=== PATIENT | male | born 1940 | race Caucasian/White ===

== ENCOUNTER → 2016-12-27 | Outpatient (CLI) | payer MEDICARE, OTHER ==
[2016-12-27 12:19] LABS: ABSOLUTE EOSINOPHILS # (AUTO) 0.1 10^3/uL (0.0-0.6); ABSOLUTE LYMPHOCYTES (AUTO) 0.9 10^3/uL (0.5-4.7); ABSOLUTE MONOCYTES (AUTO) 0.7 10^3/uL (0.1-1.4); BASOPHILS % (AUTO) 0.5 % (0-2); HEMATOCRIT 32.2 % (37.9-51.0); HEMOGLOBIN 10.9 g/dL (13.5-17.0); HGB HCT DIFFERENCE 0.5; LYMPHOCYTES % (AUTO) 19.5 % (13-45); MEAN CORPUSCULAR HEMOGLOBIN 33.4 pg (27.0-33.4); MEAN CORPUSCULAR HGB CONC 33.9 g/dL (32.0-36.0); MEAN CORPUSCULAR VOLUME 99 fl (80-97); MONOCYTES % (AUTO) 14.3 % (3-13); RED BLOOD COUNT 3.26 10^6/uL (4.35-5.55); RED CELL DISTRIBUTION WIDTH 15.2 % (11.5-14.0); SEGMENTED NEUTROPHILS % (AUTO) 63.7 % (42-78); WHITE BLOOD COUNT 4.7 10^3/uL (4.0-10.5)
[2016-12-27 12:54] LABS: ANION GAP 12 (5-19); BLOOD UREA NITROGEN 29 mg/dL (7-20); CALCIUM 9.5 mg/dL (8.4-10.2); CARBON DIOXIDE 23 mmol/L (22-30); CHLORIDE 104 mmol/L (98-107); GLUCOSE 86 mg/dL (75-110); POTASSIUM 5.6 mmol/L (3.6-5.0); SODIUM 138.5 mmol/L (137-145)
[2016-12-27 14:20] LABS: PROTHROMBIN TIME 12.1 SEC (11.4-15.4)
== END ==
LOC: OD 11:21
PROVIDERS: ATTEND Internal Medicine Critical Care Medicine
DX: R04.2 Hemoptysis (principal); R05 Cough; K21.9 Gastro-esophageal reflux disease without esophagitis; J43.9 Emphysema, unspecified; R06.09 Other forms of dyspnea; R91.1 Solitary pulmonary nodule; J39.8 Other specified diseases of upper respiratory tract; J45.40 Moderate persistent asthma, uncomplicated
CPT/HCPCS: 36415; 80048; 85025; 85610; 85730

== ENCOUNTER 2016-12-28 09:56 | Day surgery (SDC) | payer MEDICARE, OTHER ==
[2016-12-28] MEDS ORDERED: LIDOCAINE 2% JELLY 30 ML TUBE ONE (11:52)
[2016-12-28] MEDS ORDERED: LIDOCAINE 2% INJ (20 MG/ML) 20 ML MDV ONE (11:52)
[2016-12-28] MEDS ORDERED: NALOXONE HCL INJ/PF 0.4 MG/1 ML SDV ONE (11:53)
[2016-12-28] MEDS ORDERED: EPINEPHRINE INJ/PF 1 MG/1 ML AMPULE ONE (11:53)
[2016-12-28] MEDS ORDERED: FLUMAZENIL INJ 0.5 MG/5 ML VIAL ONE (11:54)
[2016-12-28] MEDS ORDERED: EPINEPHRINE INJ 1 MG/10 ML DISP.SYRIN ONE (11:54)
[2016-12-28] MEDS ORDERED: FENTANYL CITRATE INJ/PF 100 MCG/2 ML AMPUL ONE (11:54)
[2016-12-28] MEDS: MIDAZOLAM 2 MG/2 ML INJ ONE ×9 (13:00→13:10)
[2016-12-28 14:39] VITALS: BP 137/85
--- NOTE | 2016-12-28 16:58 | OPERATIVE REPORT E ---
Operative Report NAME: ROYAL BRAYAN : 1940 AGE: 76Y DATE OF SURGERY: 12/28/2016 ROOM: PREOPERATIVE DIAGNOSIS: Recurrent hemoptysis and pulmonary nodule. POSTOPERATIVE DIAGNOSES: 1. Recurrent hemoptysis and pulmonary nodule. 2. No endobronchial lesions noted. OPERATION: Flexible bronchoscopy with bronchial washing. SURGEON: ANNITA PEREZ M.D. ESTIMATED BLOOD LOSS: None. ANESTHESIA: Sedation: Conscious sedation using IV Versed and IV fentanyl. Topical Anesthesia: 1% lidocaine solution and 2% lidocaine gel. OPERATIVE NOTE: Consent was obtained from the patient. The patient verbalized understanding of the indications, risks, and potential complications of procedure. The patient was connected to the phototypesetting equipment monitor, pulse oximeter, respiratory monitor, blood pressure monitor, and oxygen saturation monitor. 2% lidocaine solution 5 mL was given via nebulizer and 2% lidocaine solution 3 mL was given via the atomizer through the procedure pharyngeal wall. 2% lidocaine gel applied to the tonsillar pharyngeal area through cotton swabs. A flexible bronchoscope was inserted through the mouthguard. 1% lidocaine solution in aliquots of 2 mL was given as the flexible bronchoscopy was advanced through the airway. Versed was given at increments of 0.5 mg to a total dose of 4.5 mg, and fentanyl IV was given at increments of 25 mcg to a total dose of 25 mcg. There were no lesions noted on the vocal cords and oropharyngeal area. The right vocal cord appeared weak or paralyzed. There were no lesions noted in the trachea, and the elvia appeared in the midline and sharp and appeared normal. The right mainstem bronchus appeared normal. Right middle lobe bronchus, right lower lobe bronchus, and right upper lobe bronchi appeared normal. The left mainstem bronchus appeared normal, the left lingular segment bronchi and the left upper lobe bronchi and the left lower lobe bronchi appeared normal. No endobronchial lesions noted. Bronchial washing was performed on both side, and the bronchial washing was sent for cytology and microbiology culture, AFB microbiology, fungal culture and bacterial culture. The patient tolerated the procedure very well. There were no immediate postoperative complications noted. The patient will be sent home. Pulmonary Care followup in 1 week following the bronchoscopy. DICTATING PHYSICIAN: ANNITA PEREZ MD,ZAIN,MPH [id number] PHY#: [id number] ID: [id number] JOB#: [id number] ACCT: [id number] cc:ANNITA PEREZ M.D. > KYLE
== END 2016-12-28 14:40 | disposition home or self-care (01) ==
LOC: OROUT 09:56
PROVIDERS: ATTEND Internal Medicine Critical Care Medicine
DX: R91.1 Solitary pulmonary nodule (principal); R04.2 Hemoptysis; J43.9 Emphysema, unspecified; B96.89 Other specified bacterial agents as the cause of diseases classified elsewhere; J45.909 Unspecified asthma, uncomplicated; K21.9 Gastro-esophageal reflux disease without esophagitis; Z79.51 Long term (current) use of inhaled steroids; Z79.899 Other long term (current) drug therapy; Z85.528 Personal history of other malignant neoplasm of kidney; Z87.891 Personal history of nicotine dependence
CPT/HCPCS: 31622; 87070; 87205; 87206; 87116; 87101; 87077; 87186; 87015; 88104 ×2; J2250; J3490; J3010; J0171; J2310

== ENCOUNTER 2018-07-05 07:16 | Day surgery (SDC) | payer MEDICARE, OTHER ==
[2018-07-05] MEDS ORDERED: ONDANSETRON HCL INJ/PF 4 MG/2 ML SDV ONE ×2 (07:27→11:32)
[2018-07-05] MEDS ORDERED: DIPHENHYDRAMINE HCL 50 MG/ML VIAL ONE ×2 (07:27→11:32)
[2018-07-05] MEDS ORDERED: NALOXONE HCL INJ/PF 0.4 MG/1 ML SDV ONE ×2 (07:28→11:33)
[2018-07-05] MEDS ORDERED: FENTANYL CITRATE INJ/PF 100 MCG/2 ML AMPUL ONE ×2 (07:28→11:32)
[2018-07-05] MEDS ORDERED: FLUMAZENIL INJ 0.5 MG/5 ML VIAL ONE ×2 (07:28→11:33)
[2018-07-05] MEDS ORDERED: GLUCAGON,HUMAN RECOMB 1 MG INJ ONE ×2 (07:29→11:33)
[2018-07-05] MEDS ORDERED: EPINEPHRINE INJ 1 MG/10 ML DISP.SYRIN ONE ×2 (07:29→11:33)
[2018-07-05] MEDS ORDERED: LIDOCAINE 2% INJ (20 MG/ML) 20 ML MDV ONE ×2 (07:30→11:32)
[2018-07-05] MEDS ORDERED: LIDOCAINE 2% JELLY 30 ML TUBE ONE ×2 (07:30→11:32)
[2018-07-05] MEDS: MIDAZOLAM 2 MG/2 ML INJ ONE ×8 (12:47→13:03)
[2018-07-05 14:23] VITALS: BP 139/92
--- NOTE | 2018-07-05 14:48 | OPERATIVE REPORT E ---
Operative Report NAME: ROYAL SCHMIDT JR : 1940 AGE: 78Y DATE OF SURGERY: 07/05/2018 ROOM: HISTORY: The patient is a 78-year-old male who came in with a history of recurrent hemoptysis. The patient had hemoptysis in 2011, had a chest CT scan and bronchoscopy which were unremarkable. He had another hemoptysis about 2 weeks ago, spitting blood about 1 tbsp or more per episode. He currently denies any hemoptysis for the last 1 week. No fever or chills. No purulent sputum production. PREOPERATIVE DIAGNOSIS: Recurrent hemoptysis. POSTOPERATIVE DIAGNOSIS: Recurrent hemoptysis. No endobronchial lesions noted. PROCEDURE: Flexible bronchoscope with bronchial washing. INDICATION: Recurrent hemoptysis. SURGEON: ANNITA PEREZ M.D. ANESTHESIA: Topical using 2% lidocaine solution for a total dose of 14 mL. Sedation was conscious sedation using IV Versed and IV Fentanyl. BLOOD LOSS: Less than 1 mL. SPECIMENS COLLECTED: Bronchial washing specimen, both lungs. ADVERSE EVENTS OR COMPLICATIONS: None. OPERATIVE NOTE: Consent was obtained from the patient. The patient verbalized understanding of the indication, risks, and potential complications of the procedure. The patient was connected to the employee relations consultant, pulse oximetry, blood pressure monitor, and respiratory monitor. The patient was given 2% lidocaine solution, total dose of 5 mL, via nebulizer. The patient was given Hurricaine spray, 4 sprays on the oropharynx. 1% lidocaine gel was applied to the oropharyngeal area via cotton swab. The flexible bronchoscope was inserted through the mouth guard. Patient was given IV Versed at increments of 0.5 mg to a total dose of 4 mg and Fentanyl at increments of 25 mcg for a total dose of 50 mcg. The 1% lidocaine solution in aliquots of 1 to 4 mL was given through the bronchoscope. As the flexible bronchoscope was advanced the 1% lidocaine solution was given to the oropharynx, vocal cords, trachea, elvia, left mainstem bronchus, and right mainstem bronchus. Thick secretions were collected from both mainstem bronchi. There was no endobronchial lesion noted in the left lung or in the right lung in each bronchopulmonary segments. The left mainstem bronchus appeared to be easily friable and appeared to bruise with slight bleeding following severe coughing. The bleeding stopped spontaneously during the procedure. There was no adverse event during the procedure and after the procedure. The patient tolerated the procedure well. PLAN: Pulmonary Clinic followup in 6 weeks following discharge. I instructed the patient to cut down aspirin to 81 mg instead of the 325 mg half tablet daily to start tomorrow. DICTATING PHYSICIAN: ANNITA PEREZ MD,ZAIN,MPH [id number] PHY#: [id number] ID: [id number] JOB#: [id number] ACCT: [id number] cc:ANNITA PEREZ M.D. > MTDD
== END 2018-07-05 14:30 | disposition home or self-care (01) ==
LOC: END 07:16
PROVIDERS: ATTEND Internal Medicine Critical Care Medicine
DX: R04.2 Hemoptysis (principal); J43.9 Emphysema, unspecified; R91.8 Other nonspecific abnormal finding of lung field; J45.40 Moderate persistent asthma, uncomplicated; R91.1 Solitary pulmonary nodule; J47.9 Bronchiectasis, uncomplicated; R06.09 Other forms of dyspnea; K21.9 Gastro-esophageal reflux disease without esophagitis; Z85.528 Personal history of other malignant neoplasm of kidney; Z79.51 Long term (current) use of inhaled steroids; Z79.899 Other long term (current) drug therapy; Z79.82 Long term (current) use of aspirin; Z79.891 Long term (current) use of opiate analgesic
CPT/HCPCS: 31622; 87070; 87205; 87206; 87116; 87101; 87015; 88162; J2250; J3490; J3010; J0171; J1200; J1610; J2310; J2405

== ENCOUNTER → 2019-01-06 | Outpatient (CLI) | payer MEDICARE, OTHER ==
--- NOTE | 2019-01-07 11:04 | RADIOLOGY REPORT (SQ) ---
EXAM DESCRIPTION: PET CT SKULL/THIGH COMPLETED DATE/TIME: 01/06/2019 11:44 pm REASON FOR STUDY: (R91.1)SOLITARY PULMONARY NODULE R91.1 SOLITARY PULMONARY NODULE COMPARISON: Report only, [facility] CT chest 12/25/2018 RADIONUCLIDE AND DOSE: 12.2 mCi F18 FDG The route of agent administration: Intravenous FASTING BLOOD SUGAR: 92 mg/dl CONTRAST TYPE AND DOSE: No CT contrast given. TECHNIQUE: Blood glucose level was verified. Above dose of FDG was injected intravenously. 2-D seg mented attenuation correction images were obtained from the base of the skull to the midthighs. Nonc ontrast CT images were obtained for attenuation correction and fusion with emission images. CT image s were performed without oral or intravenous contrast and are not sensitive for parenchymal lesions. A series of overlapping emission PET images were obtained. Images reviewed and manipulated at [facility] work station by the radiologist. Images stored on PACS. LIMITATIONS: None. FINDINGS: HEAD AND NECK: No areas of abnormal metabolic activity in the soft tissues of the head and neck. CHEST: In the posterior aspect of the right lung apex, an ill-defined 2.3 x 2.1 cm partially solid no dule is present in the right upper lobe with SUV of 6. This could represent pneumonia or malignancy. In the anterior aspect right upper lobe, an 11 x 7 mm right upper lobe nodule is present on axial david ge 69 with SUV of 2.5 (just above liver background activity at SUV 2.3). No other metabolically active lung nodules are present. subcentimeter right middle lobe and right up per lobe nodules described on PET-CT 12/25/2018 are not identified. No pleural effusion. No mediasti nal metabolically active lymph nodes. ABDOMEN AND PELVIS: No areas of abnormal metabolic activity in the abdomen or pelvis. Expected physi ologic activity is present in the genitourinary system and bowel. PROXIMAL LOWER EXTREMITIES: No areas of abnormal metabolic activity in the soft tissues of the lower extremities. BONES: No abnormal metabolic activity in the visualized skeleton. ADDITIONAL CT FINDINGS: Calcified stones in the gallbladder. 1 cm right lower pole renal cortical cy st. Colonic diverticulosis without CT signs of acute diverticulitis. Fatty left inguinal hernia. C alcified left carotid bifurcation OTHER: Liver background activity 2.3 SUV. Blood pool background activity 1.6 SUV IMPRESSION: New 2.3 x 2.1 cm sub solid nodule right upper lobe with SUV of 6. Differential is pneum onia versus malignancy. 11 x 7 mm right apical nodule described on CT 12/25/2018 has metabolic activity just above liver backg round. TECHNICAL DOCUMENTATION: JOB ID: [id number] [employer]- All Rights Reserved Reading location - IP/workstation name: [email or web address]
== END ==
LOC: RAD 16:39
PROVIDERS: ATTEND Internal Medicine
DX: R91.1 Solitary pulmonary nodule (principal)
CPT/HCPCS: 78815; A9552

== ENCOUNTER → 2019-03-05 | Outpatient (CLI) | payer MEDICARE, OTHER ==
--- NOTE | 2019-03-05 12:26 | RADIOLOGY REPORT (SQ) ---
EXAM DESCRIPTION: CT CHEST WITHOUT COMPLETED DATE/TIME: 03/05/2019 10:22 am REASON FOR STUDY: PULMONARY NODULE (R91.1) R91.1 SOLITARY PULMONARY NODULE COMPARISON: PET-CT 01/06/2019 TECHNIQUE: CT scan performed of the chest without intravenous contrast. Images reviewed with lung, soft tissue and bone windows. Reconstructed coronal and sagittal MPR images reviewed. All images st ored on PACS. All CT scanners at this facility use dose modulation, iterative reconstruction, and/or weight based d osing when appropriate to reduce radiation dose to as low as reasonably achievable (ALARA). [facility]: Dose Right [facility]: CareDose [facility]: Dose Right [facility]: Teradose 4D [facility]: Smart [employer] RADIATION DOSE: CT Rad equipment meets quality standard of care and radiation dose reduction techniq ues were employed. CTDIvol: 7.8 mGy. DLP: 361 mGy-cm. mGy. LIMITATIONS: No technical limitations. FINDINGS: LUNGS AND PLEURA: Previously described 2.3 x 2.1 cm partially solid nodule in the posterio r aspect of the right lung apex has decreased in size. Small residual irregular nodular opacity neli ures 9 x 4 mm (series 4, image 38). The additional previously described 11 x 7 mm right apical nodul e is grossly stable measuring 10 x 6 mm (series 4, image 29). No new discrete nodules or masses. Em physematous change. No new airspace disease. No pleural effusion or pneumothorax. HILAR AND MEDIASTINAL STRUCTURES: No discrete mediastinal, hilar or axillary adenopathy. HEART AND VASCULAR STRUCTURES: Normal heart size. Coronary atherosclerosis. No pericardial effusion . UPPER ABDOMEN: No acute findings on the limits evaluation. THYROID AND OTHER SOFT TISSUES: No masses. No adenopathy. BONES: No acute bony abnormality. No discrete lytic or blastic osseous lesions. HARDWARE: None in the chest. OTHER: No other significant findings. IMPRESSION: 1. Decreased size of the previously described right apical nodules as detailed above. No new suspicious nodules or masses or new lymphadenopathy. 2. Emphysematous change without other evidence of acute cardiopulmonary process. TECHNICAL DOCUMENTATION: JOB ID: [id number] Quality ID # [id number]: Final reports with documentation of one or more dose reduction techniques (e.g., Au tomated exposure control, adjustment of the mA and/or kV according to patient size, use of iterative reconstruction technique) 2010 [employer]- All Rights Reserved Reading location - IP/workstation name: [email or web address]
== END ==
LOC: RAD 09:46
PROVIDERS: ATTEND Internal Medicine Critical Care Medicine
DX: R91.1 Solitary pulmonary nodule (principal); R04.2 Hemoptysis; J39.8 Other specified diseases of upper respiratory tract; J45.40 Moderate persistent asthma, uncomplicated; J47.9 Bronchiectasis, uncomplicated; J43.9 Emphysema, unspecified; R63.4 Abnormal weight loss; K21.9 Gastro-esophageal reflux disease without esophagitis; R06.09 Other forms of dyspnea
CPT/HCPCS: 71250